=== PATIENT | female | born 1965 | race Two or more races ===

== ENCOUNTER 2024-11-05 11:45 | Outpatient (CLI) | payer OTHER | END 2024-11-05 17:00 | disposition home or self-care (01) | LOC: LAB 11:45 | PROVIDERS: ATTEND Nurse Practitioner Family | DX: I10 Essential (primary) hypertension (principal); E78.5 Hyperlipidemia, unspecified; E55.9 Vitamin D deficiency, unspecified; Z12.11 Encounter for screening for malignant neoplasm of colon; Z00.01 Encounter for general adult medical examination with abnormal findings | CPT/HCPCS: 82274 ==

== ENCOUNTER → 2024-12-31 | Outpatient (CLI) | payer OTHER ==
[2024-12-31 11:18] LABS: Urine Protein, UAD Negative (Negative)
[2024-12-31 11:23] LABS: Hematocrit 44.3 % (36.0-46.0); Hemoglobin 15.1 g/dL (12.2-16.2); Mean Corpuscular Hemoglobin 29.2 pg (28.0-32.0); Mean Corpuscular Volume 85.5 fL (80.0-100.0); Nucleated Red Blood Cells % 0.1 %
[2024-12-31 11:57] LABS: Alanine Aminotransferase 22 U/L (7-40); Alkaline Phosphatase 94 U/L (46-116); Amylase 58 U/L (30-118); Anion Gap 10 (5-15); BUN/Creatinine Ratio 10.7 (10.0-20.0); Calcium 9.4 mg/dL (8.7-10.4); Carbon Dioxide 25 mmol/L (20-31); Lipase 40 U/L (12-53); Potassium 4.1 mmol/L (3.5-5.1); Sodium 142 mmol/L (136-145); Total Protein 7.2 g/dL (5.7-8.2)
[2024-12-31 11:58] LABS: Albumin 4.7 g/dL (3.2-4.8)
[2024-12-31 11:59] LABS: Blood Urea Nitrogen 8 mg/dL (9-23); Chloride 107 mmol/L (98-107); Glucose 112 mg/dL (74-106)
[2024-12-31 12:13] LABS: Bilirubin, Total 1.0 mg/dL (0.2-1.0)
[2024-12-31 20:11] LABS: Triglycerides 140 mg/dL (< 150)
[2024-12-31 20:17] LABS: Cholesterol 210 mg/dL (< 200); HDL Cholesterol 64 mg/dL (40-59)
== END | disposition home or self-care (01) ==
LOC: LAB 10:48
PROVIDERS: ATTEND Nurse Practitioner Family
DX: E78.5 Hyperlipidemia, unspecified (principal); E55.9 Vitamin D deficiency, unspecified; R73.9 Hyperglycemia, unspecified
CPT/HCPCS: 36415; 80053; 80061; 81003; 82150; 82306; 83036; 83690; 85025

== ENCOUNTER 2025-01-07 12:33 | Outpatient (CLI) | payer OTHER | END 2025-01-07 17:00 | disposition home or self-care (01) | LOC: LAB 12:33 | PROVIDERS: ATTEND Nurse Practitioner Family | DX: R10.11 Right upper quadrant pain (principal) | CPT/HCPCS: 82962 ==

== ENCOUNTER 2025-04-09 10:31 | Outpatient (CLI) | payer OTHER ==
[2025-04-09 11:20] LABS: Hematocrit 41.8 % (36.0-46.0); Hemoglobin 14.1 g/dL (12.2-16.2); Mean Corpuscular Hemoglobin 28.9 pg (28.0-32.0); Mean Corpuscular Volume 85.9 fL (80.0-100.0); Nucleated Red Blood Cells % 0.2 %
[2025-04-09 11:33] LABS: Urine Protein, UAD Negative (Negative)
[2025-04-09 12:04] LABS: Alanine Aminotransferase 22 U/L (7-40); Albumin 4.4 g/dL (3.2-4.8); Alkaline Phosphatase 113 U/L (46-116); Anion Gap 11 (5-15); BUN/Creatinine Ratio 16.2 (10.0-20.0); Bilirubin, Total 0.6 mg/dL (0.2-1.0); Blood Urea Nitrogen 11 mg/dL (9-23); Calcium 9.3 mg/dL (8.7-10.4); Carbon Dioxide 27 mmol/L (20-31); Chloride 106 mmol/L (98-107); Potassium 3.9 mmol/L (3.5-5.1); Sodium 144 mmol/L (136-145); Total Protein 7.0 g/dL (5.7-8.2)
[2025-04-09 12:05] LABS: Cholesterol 243 mg/dL (< 200); Glucose 108 mg/dL (74-106); HDL Cholesterol 63 mg/dL (40-59); Triglycerides 165 mg/dL (< 150)
== END 2025-04-09 17:00 | disposition home or self-care (01) ==
LOC: LAB 10:31
PROVIDERS: ATTEND Nurse Practitioner Family
DX: E78.5 Hyperlipidemia, unspecified (principal); E55.9 Vitamin D deficiency, unspecified; R21 Rash and other nonspecific skin eruption
CPT/HCPCS: 36415; 80053; 80061; 81001; 82306; 82785; 83036; 84443; 85025; 86003